=== PATIENT | female | born 1930 | race Caucasian/White ===

== ENCOUNTER 2018-09-01 10:42 | Inpatient (IN) | payer MEDICAID ==
[~2018-09-01] VITALS: Ht 152.4 cm; Wt 59.9 kg
[2018-09-01] MEDS ORDERED: HYDROCODONE/ACETAMINOPHEN 5/325MG TABLET PO ONE (11:30)
[2018-09-01] MEDS ORDERED: MORPHINE SULFATE 4 MG/ML CPJ (NOT FOR IM USE) IV STA (13:43)
[2018-09-01] MEDS ORDERED: ONDANSETRON HCL 4MG/2ML INJ IV STA (13:43)
[2018-09-01] MEDS ORDERED: SODIUM CHLORIDE 0.9% 1,000 ML IV ONE (13:43)
[2018-09-01] MEDS ORDERED: MORPHINE SULFATE 4 MG/ML CPJ (NOT FOR IM USE) IV ONE (13:45)
[2018-09-01] MEDS ORDERED: ETOMIDATE 2MG/ML 10ML VIAL IV ONE (13:45)
[2018-09-01 15:23] LABS: BASOPHILS % 0.7 % (0.0-2.0); EOSINOPHILS % 1.9 % (0.0-5.0); HEMOGLOBIN. 11.2 g/dL (12.0-16.0); LYMPHOCYTES % 16.6 % (20.0-50.0); MEAN CORPUSCULAR HEMOGLOBIN 26.4 pg (28.0-32.0); MEAN CORPUSCULAR VOLUME 85.3 fL (81.0-99.0); MEAN PLATELET VOLUME 9.4 fl (7.4-10.4); MONOCYTES % 4.6 % (2.0-8.0); NEUTROPHILS % 76.2 % (40.0-76.0); PLATELET 195 x1000/uL (130-400); RED BLOOD CELL COUNT 4.23 mill/uL (4.2-5.4); RED CELL DISTRIBUTION WIDTH 16.2 % (11.6-14.6)
[2018-09-01 15:24] LABS: CHLORIDE 108 mEq/L (98-107); INR 1.1; PARTIAL THROMBOPLASTIN TIME 21.7 sec (23.4-31.0); PROTHROMBIN TIME 11.1 sec (9.6-11.0)
[2018-09-01 15:59] LABS: PLATELET ESTIMATE NORMAL
[2018-09-01] MEDS ORDERED: CLONIDINE 0.1MG TABLET PO PRN (17:45)
[2018-09-01] MEDS ORDERED: DOCUSATE SODIUM 100MG CAPSULE PO PRN (17:45)
[2018-09-01] MEDS ORDERED: ONDANSETRON HCL 4MG/2ML INJ IV PRN (17:45)
[2018-09-01] MEDS ORDERED: ACETAMINOPHEN 325MG TABLET PO PRN (17:45)
[2018-09-01] MEDS ORDERED: IPRATROPIUM/ALBUTEROL 0.5-3(2.5)MG/3ML NEB INH PRN (17:45)
[2018-09-01] MEDS ORDERED: AMLODIPINE 5MG TABLET PO ONE (18:00)
[2018-09-01 18:20] LABS: PHOSPHORUS 3.2 mg/dL (2.5-4.9)
[2018-09-02] MEDS: MORPHINE SULFATE 4 MG/ML CPJ (NOT FOR IM USE) IV PRN ×3 (01:18→18:25)
[2018-09-02 05:09] LABS: BASOPHILS % 0.8 % (0.0-2.0); EOSINOPHILS % 1.3 % (0.0-5.0); HEMATOCRIT. 30.7 % (36.0-48.0); HEMOGLOBIN. 9.7 g/dL (12.0-16.0); MEAN CORPUSCULAR HEMOGLOBIN 26.8 pg (28.0-32.0); MEAN CORPUSCULAR VOLUME 84.7 fL (81.0-99.0); MEAN PLATELET VOLUME 7.6 fl (7.4-10.4); MONOCYTES % 7.4 % (2.0-8.0); NEUTROPHILS % 74.5 % (40.0-76.0); PLATELET 177 x1000/uL (130-400); RED BLOOD CELL COUNT 3.62 mill/uL (4.2-5.4); RED CELL DISTRIBUTION WIDTH 16.3 % (11.6-14.6)
[2018-09-02 05:16] LABS: CHLORIDE 107 mEq/L (98-107)
[2018-09-02 09:00] VITALS: BP 146/58
[2018-09-02 09:06] VITALS: BP 146/57
[2018-09-02] MEDS: AMLODIPINE 5MG TABLET PO SCH ×2 (11:28→20:50)
[2018-09-02 12:21] VITALS: BP 155/56
[2018-09-02 15:46] VITALS: BP 114/54
[2018-09-02 20:00] VITALS: BP 127/44
[2018-09-02] MEDS: LORAZEPAM 0.5MG TABLET PO PRN (20:28)
[2018-09-02] MEDS ORDERED: DEXTROSE 50% WATER 50ML SYRINGE IV PRN (21:15)
[2018-09-02] MEDS: BLOOD SUGAR DIAGNOSTIC STRIP TEST SCH (21:15)
[2018-09-02] MEDS: INSULIN LISPRO 100 UNITS/ML SUBCUT SCH (23:55)
[2018-09-03] VITALS: BP 166/59
[2018-09-03] MEDS: MORPHINE SULFATE 4 MG/ML CPJ (NOT FOR IM USE) IV PRN ×2 (00:20→09:24)
[2018-09-03] MEDS: LORAZEPAM 0.5MG TABLET PO PRN ×2 (03:25→09:23)
[2018-09-03 04:00] VITALS: BP 147/51
[2018-09-03 06:00] LABS: BASOPHILS % 0.7 % (0.0-2.0); EOSINOPHILS % 1.3 % (0.0-5.0); HEMATOCRIT. 29.9 % (36.0-48.0); HEMOGLOBIN. 9.6 g/dL (12.0-16.0); LYMPHOCYTES % 17.8 % (20.0-50.0); MEAN CORPUSCULAR HEMOGLOBIN 26.9 pg (28.0-32.0); MEAN CORPUSCULAR VOLUME 83.6 fL (81.0-99.0); MEAN PLATELET VOLUME 8.1 fl (7.4-10.4); MONOCYTES % 8.4 % (2.0-8.0); NEUTROPHILS % 71.8 % (40.0-76.0); PLATELET 181 x1000/uL (130-400); RED BLOOD CELL COUNT 3.57 mill/uL (4.2-5.4); RED CELL DISTRIBUTION WIDTH 16.1 % (11.6-14.6)
[2018-09-03] MEDS: BLOOD SUGAR DIAGNOSTIC STRIP TEST SCH ×4 (06:30→21:00)
[2018-09-03] MEDS: INSULIN LISPRO 100 UNITS/ML SUBCUT SCH ×4 (07:32→21:21)
[2018-09-03 08:00] VITALS: BP 170/53
[2018-09-03] MEDS: AMLODIPINE 5MG TABLET PO SCH ×2 (09:01→20:42)
[2018-09-03 12:00] VITALS: BP 142/57
[2018-09-03 16:00] VITALS: BP 147/46
[2018-09-03] MEDS: HYDROCODONE/ACETAMINOPHEN 5/325MG TABLET PO PRN ×2 (16:03→21:39)
[2018-09-03 20:00] VITALS: BP 117/68
[2018-09-04] VITALS: BP 127/70
[2018-09-04 04:00] VITALS: BP 146/65
[2018-09-04] MEDS: INSULIN LISPRO 100 UNITS/ML SUBCUT SCH ×4 (06:54→22:05)
[2018-09-04] MEDS: BLOOD SUGAR DIAGNOSTIC STRIP TEST SCH ×4 (06:54→21:04)
[2018-09-04 07:32] LABS: BASOPHILS % 0.6 % (0.0-2.0); EOSINOPHILS % 2.1 % (0.0-5.0); HEMATOCRIT. 28.3 % (36.0-48.0); HEMOGLOBIN. 8.9 g/dL (12.0-16.0); LYMPHOCYTES % 13.9 % (20.0-50.0); MEAN CORPUSCULAR HEMOGLOBIN 26.8 pg (28.0-32.0); MEAN PLATELET VOLUME 7.9 fl (7.4-10.4); MONOCYTES % 6.1 % (2.0-8.0); NEUTROPHILS % 77.3 % (40.0-76.0); PLATELET 176 x1000/uL (130-400); RED BLOOD CELL COUNT 3.33 mill/uL (4.2-5.4); RED CELL DISTRIBUTION WIDTH 16.4 % (11.6-14.6)
[2018-09-04 07:45] LABS: CHLORIDE 108 mEq/L (98-107)
[2018-09-04 08:00] VITALS: BP 156/62
[2018-09-04] MEDS: HYDROCODONE/ACETAMINOPHEN 5/325MG TABLET PO PRN ×3 (08:20→22:02)
[2018-09-04] MEDS: AMLODIPINE 5MG TABLET PO SCH ×2 (09:00→20:38)
[2018-09-04 12:00] VITALS: BP 141/50
[2018-09-04 16:00] VITALS: BP 147/43
[2018-09-04 20:00] VITALS: BP 125/50
[2018-09-05] VITALS: BP 150/57
[2018-09-05 04:00] VITALS: BP 151/54
[2018-09-05] MEDS: HYDROCODONE/ACETAMINOPHEN 5/325MG TABLET PO PRN ×3 (04:17→18:25)
[2018-09-05 06:02] LABS: BASOPHILS % 0.9 % (0.0-2.0); EOSINOPHILS % 1.2 % (0.0-5.0); HEMATOCRIT. 28.3 % (36.0-48.0); HEMOGLOBIN. 8.9 g/dL (12.0-16.0); LYMPHOCYTES % 16.1 % (20.0-50.0); MEAN CORPUSCULAR HEMOGLOBIN 26.6 pg (28.0-32.0); MEAN CORPUSCULAR VOLUME 84.4 fL (81.0-99.0); MEAN PLATELET VOLUME 7.9 fl (7.4-10.4); MONOCYTES % 7.7 % (2.0-8.0); NEUTROPHILS % 74.1 % (40.0-76.0); PLATELET 198 x1000/uL (130-400); RED BLOOD CELL COUNT 3.35 mill/uL (4.2-5.4); RED CELL DISTRIBUTION WIDTH 16.7 % (11.6-14.6)
[2018-09-05] MEDS: BLOOD SUGAR DIAGNOSTIC STRIP TEST SCH ×4 (06:56→20:35)
[2018-09-05 07:17] LABS: CHLORIDE 105 mEq/L (98-107)
[2018-09-05] MEDS: INSULIN LISPRO 100 UNITS/ML SUBCUT SCH ×4 (07:50→20:56)
[2018-09-05 08:00] VITALS: BP 150/58
[2018-09-05] MEDS: AMLODIPINE 5MG TABLET PO SCH ×2 (09:43→20:35)
[2018-09-05 12:00] VITALS: BP 159/53
[2018-09-05 16:00] VITALS: BP 149/62
[2018-09-05 20:00] VITALS: BP 137/63
[2018-09-06] VITALS: BP 154/67
[2018-09-06 04:00] VITALS: BP 147/60
[2018-09-06 06:30] LABS: BASOPHILS % 1.2 % (0.0-2.0); EOSINOPHILS % 2.8 % (0.0-5.0); HEMATOCRIT. 29.9 % (36.0-48.0); HEMOGLOBIN. 9.5 g/dL (12.0-16.0); LYMPHOCYTES % 22.3 % (20.0-50.0); MEAN CORPUSCULAR HEMOGLOBIN 26.8 pg (28.0-32.0); MEAN CORPUSCULAR VOLUME 84.5 fL (81.0-99.0); MEAN PLATELET VOLUME 7.7 fl (7.4-10.4); MONOCYTES % 6.4 % (2.0-8.0); NEUTROPHILS % 67.3 % (40.0-76.0); PLATELET 228 x1000/uL (130-400); RED BLOOD CELL COUNT 3.54 mill/uL (4.2-5.4); RED CELL DISTRIBUTION WIDTH 16.6 % (11.6-14.6)
[2018-09-06 06:34] LABS: CHLORIDE 105 mEq/L (98-107)
[2018-09-06] MEDS: BLOOD SUGAR DIAGNOSTIC STRIP TEST SCH ×4 (07:20→21:00)
[2018-09-06] MEDS: INSULIN LISPRO 100 UNITS/ML SUBCUT SCH ×4 (07:50→22:39)
[2018-09-06 08:00] VITALS: BP 177/64
[2018-09-06] MEDS ORDERED: MORPHINE SULFATE 4 MG/ML CPJ (NOT FOR IM USE) IV SCH (08:30)
[2018-09-06] MEDS: AMLODIPINE 5MG TABLET PO SCH ×2 (09:00→21:33)
[2018-09-06] MEDS ORDERED: HYDRALAZINE 5 MG in SODIUM CHLORIDE 0.9% 49.75 ML IV SCH (09:15)
[2018-09-06] MEDS ORDERED: HYDRALAZINE 5 MG in SODIUM CHLORIDE 0.9% 49.5 ML IV PRN (09:15)
[2018-09-06] MEDS ORDERED: BACITRACIN 15GM TUBE TOP ONE (09:21)
[2018-09-06] MEDS ORDERED: VANCOMYCIN HCL 500 MG/VIAL ONE (09:22)
[2018-09-06] MEDS ORDERED: MIDAZOLAM HCL 2 MG/2 ML VIAL ONE (09:53)
[2018-09-06] MEDS ORDERED: BUPIVACAINE HCL/DEXTROSE/PF 0.75% 2ML AMP INJ ONE (09:56)
[2018-09-06] MEDS ORDERED: CEFAZOLIN 1000MG PREMIX 50 ML IV SCH (11:00)
[2018-09-06] MEDS ORDERED: CEFAZOLIN SODIUM 1000MG/VIAL ONE (11:11)
[2018-09-06] MEDS ORDERED: ONDANSETRON HCL 4MG/2ML INJ IV PRN (11:30)
[2018-09-06] MEDS: FENTANYL CITRATE/PF 50MCG/ML 2ML VIAL IV PRN ×2 (11:55→12:05)
[2018-09-06] MEDS: HYDROMORPHONE HCL/PF 2MG/ML CPJ IV PRN ×3 (12:30→12:54)
[2018-09-06] MEDS: HYDROCODONE/ACETAMINOPHEN 5/325MG TABLET PO PRN (14:32)
[2018-09-06 16:00] VITALS: BP 154/59
[2018-09-06] MEDS: LISINOPRIL 10MG TABLET PO SCH ×2 (16:25→21:32)
[2018-09-06] MEDS: MORPHINE SULFATE 4 MG/ML CPJ (NOT FOR IM USE) IV PRN ×2 (17:05→21:34)
[2018-09-06 17:12] LABS: BASOPHILS % 0.8 % (0.0-2.0); EOSINOPHILS % 0.8 % (0.0-5.0); HEMOGLOBIN. 9.5 g/dL (12.0-16.0); LYMPHOCYTES % 9.3 % (20.0-50.0); MEAN CORPUSCULAR HEMOGLOBIN 26.7 pg (28.0-32.0); MEAN CORPUSCULAR VOLUME 84.4 fL (81.0-99.0); MEAN PLATELET VOLUME 7.4 fl (7.4-10.4); MONOCYTES % 5.9 % (2.0-8.0); NEUTROPHILS % 83.2 % (40.0-76.0); PLATELET 222 x1000/uL (130-400); RED BLOOD CELL COUNT 3.55 mill/uL (4.2-5.4); RED CELL DISTRIBUTION WIDTH 16.8 % (11.6-14.6)
[2018-09-06 17:19] LABS: CHLORIDE 103 mEq/L (98-107)
[2018-09-06] MEDS: CEFAZOLIN 1000MG PREMIX 50 ML IV SCH (18:20)
[2018-09-06 20:00] VITALS: BP 147/59
[2018-09-07] VITALS: BP 125/57
[2018-09-07] MEDS: MORPHINE SULFATE 4 MG/ML CPJ (NOT FOR IM USE) IV PRN ×3 (01:28→17:01)
[2018-09-07] MEDS: CEFAZOLIN 1000MG PREMIX 50 ML IV SCH (03:22)
[2018-09-07 04:00] VITALS: BP 133/63
[2018-09-07 06:24] LABS: BASOPHILS % 0.7 % (0.0-2.0); EOSINOPHILS % 1.1 % (0.0-5.0); HEMATOCRIT. 30.1 % (36.0-48.0); HEMOGLOBIN. 9.7 g/dL (12.0-16.0); LYMPHOCYTES % 11.8 % (20.0-50.0); MEAN CORPUSCULAR HEMOGLOBIN 27.1 pg (28.0-32.0); MEAN PLATELET VOLUME 7.6 fl (7.4-10.4); MONOCYTES % 6.4 % (2.0-8.0); PLATELET 232 x1000/uL (130-400); RED BLOOD CELL COUNT 3.59 mill/uL (4.2-5.4); RED CELL DISTRIBUTION WIDTH 16.4 % (11.6-14.6)
[2018-09-07 07:13] LABS: CHLORIDE 102 mEq/L (98-107)
[2018-09-07] MEDS: BLOOD SUGAR DIAGNOSTIC STRIP TEST SCH ×4 (07:20→21:55)
[2018-09-07] MEDS ORDERED: METO-539 PO (07:31)
[2018-09-07] MEDS ORDERED: BENA5TAB6 PO (07:32)
[2018-09-07] MEDS ORDERED: ASPI-1159 PO (07:34)
[2018-09-07] MEDS ORDERED: HYDR-4135 MT (07:34)
[2018-09-07] MEDS ORDERED: ATOR10TA69 MT (07:34)
[2018-09-07] MEDS ORDERED: WARF3TAB58 MT (07:34)
[2018-09-07] MEDS ORDERED: PANT40TA4 PO (07:35)
[2018-09-07 08:00] VITALS: BP 146/56
[2018-09-07] MEDS: LISINOPRIL 10MG TABLET PO SCH ×2 (09:28→21:07)
[2018-09-07] MEDS: AMLODIPINE 5MG TABLET PO SCH ×2 (09:28→21:07)
[2018-09-07] MEDS: INSULIN LISPRO 100 UNITS/ML SUBCUT SCH ×4 (09:35→22:28)
[2018-09-07 11:23] VITALS: BP 159/59
[2018-09-07] MEDS: HYDROCODONE/ACETAMINOPHEN 5/325MG TABLET PO PRN ×2 (11:47→21:09)
[2018-09-07 16:00] VITALS: BP 161/62
[2018-09-07 20:24] VITALS: BP 142/59
[2018-09-07] MEDS ORDERED: MAGNESIUM 4 G PREMIX 100 ML IV NR (21:00)
[2018-09-07] MEDS: ENOXAPARIN 30MG/0.3ML SYR SUBCUT SCH (21:11)
[2018-09-08] VITALS (7 sets, daily range): BP systolic 113–154; BP diastolic 48–69
[2018-09-08] MEDS: MORPHINE SULFATE 4 MG/ML CPJ (NOT FOR IM USE) IV PRN ×4 (00:21→20:18)
[2018-09-08 06:17] LABS: BASOPHILS % 1.5 % (0.0-2.0); EOSINOPHILS % 2.5 % (0.0-5.0); HEMATOCRIT. 32.6 % (36.0-48.0); HEMOGLOBIN. 10.4 g/dL (12.0-16.0); LYMPHOCYTES % 22.5 % (20.0-50.0); MEAN CORPUSCULAR HEMOGLOBIN 27.3 pg (28.0-32.0); MEAN CORPUSCULAR VOLUME 85.6 fL (81.0-99.0); MEAN PLATELET VOLUME 7.7 fl (7.4-10.4); NEUTROPHILS % 65.5 % (40.0-76.0); PLATELET 216 x1000/uL (130-400); RED BLOOD CELL COUNT 3.81 mill/uL (4.2-5.4)
[2018-09-08] MEDS: INSULIN LISPRO 100 UNITS/ML SUBCUT SCH ×4 (06:36→22:00)
[2018-09-08] MEDS: BLOOD SUGAR DIAGNOSTIC STRIP TEST SCH ×4 (06:36→22:00)
[2018-09-08 06:47] LABS: CHLORIDE 105 mEq/L (98-107)
[2018-09-08 07:02] LABS: TOTAL IRON BINDING CAPACITY 510 ug/dL (250-450)
[2018-09-08 07:19] LABS: VITAMIN B12 SERUM >2000 pg/mL pg/mL (211-911)
[2018-09-08 07:20] LABS: FERRITIN 51 ng/mL (10-291)
[2018-09-08] MEDS: AMLODIPINE 5MG TABLET PO SCH ×2 (08:02→20:35)
[2018-09-08] MEDS: LISINOPRIL 10MG TABLET PO SCH ×2 (08:02→20:35)
[2018-09-08] MEDS: POLYETHYLENE GLYCOL 3350 (17GM) 1 DOSE PACK PO SCH (08:06)
[2018-09-08] MEDS: HYDROCODONE/APAP 7.5/325MG 1 TAB TABLET PO PRN (10:22)
[2018-09-08] MEDS ORDERED: LISI10TA5 PO (13:37)
[2018-09-08] MEDS ORDERED: FERR325T6 MT (13:37)
[2018-09-08] MEDS ORDERED: HYDR-4005 PO (13:37)
[2018-09-08] MEDS ORDERED: DOCU-138 MT (13:37)
[2018-09-08] MEDS ORDERED: AMLO5TAB88 PO (13:37)
[2018-09-08] MEDS: FERROUS SULFATE 325MG TABLET PO SCH (17:13)
[2018-09-08] MEDS: ENOXAPARIN 30MG/0.3ML SYR SUBCUT SCH (17:13)
[2018-09-09] MEDS: HYDROCODONE/APAP 7.5/325MG 1 TAB TABLET PO PRN ×3 (00:47→17:25)
[2018-09-09 03:57] VITALS: BP 121/54
[2018-09-09] MEDS: BLOOD SUGAR DIAGNOSTIC STRIP TEST SCH ×4 (06:44→20:05)
[2018-09-09] MEDS: INSULIN LISPRO 100 UNITS/ML SUBCUT SCH ×4 (06:44→21:08)
[2018-09-09 07:32] VITALS: BP 140/57
[2018-09-09] MEDS: POLYETHYLENE GLYCOL 3350 (17GM) 1 DOSE PACK PO SCH (08:28)
[2018-09-09] MEDS: AMLODIPINE 5MG TABLET PO SCH ×2 (08:29→20:04)
[2018-09-09] MEDS: FERROUS SULFATE 325MG TABLET PO SCH ×3 (08:29→17:24)
[2018-09-09] MEDS: LISINOPRIL 10MG TABLET PO SCH ×2 (08:29→20:05)
[2018-09-09 12:00] VITALS: BP 140/87
[2018-09-09] MEDS: RISPERIDONE 0.5MG TABLET PO SCH (12:35)
[2018-09-09 16:00] VITALS: BP 136/52
[2018-09-09] MEDS: ENOXAPARIN 40MG/0.4ML SYR SUBCUT SCH (17:25)
[2018-09-09 20:00] VITALS: BP 104/62
[2018-09-09] MEDS: ALPRAZOLAM 0.5 MG TABLET PO PRN (21:05)
[2018-09-10] VITALS: BP 148/59
[2018-09-10] MEDS: BLOOD SUGAR DIAGNOSTIC STRIP TEST SCH ×4 (06:35→20:37)
[2018-09-10] MEDS: INSULIN LISPRO 100 UNITS/ML SUBCUT SCH ×4 (07:50→20:41)
[2018-09-10 08:00] VITALS: BP 144/60
[2018-09-10] MEDS: LISINOPRIL 10MG TABLET PO SCH ×2 (09:05→20:18)
[2018-09-10] MEDS: RISPERIDONE 0.5MG TABLET PO SCH (09:05)
[2018-09-10] MEDS: POLYETHYLENE GLYCOL 3350 (17GM) 1 DOSE PACK PO SCH (09:05)
[2018-09-10] MEDS: AMLODIPINE 5MG TABLET PO SCH ×2 (09:05→20:19)
[2018-09-10] MEDS: FERROUS SULFATE 325MG TABLET PO SCH ×3 (09:05→18:12)
[2018-09-10 12:00] VITALS: BP 139/58
[2018-09-10 16:00] VITALS: BP 136/53
[2018-09-10] MEDS: ENOXAPARIN 40MG/0.4ML SYR SUBCUT SCH (18:12)
[2018-09-10 20:00] VITALS: BP 144/57
[2018-09-10] MEDS: ALPRAZOLAM 0.5 MG TABLET PO PRN (21:46)
[2018-09-11] VITALS: BP 144/74
[2018-09-11 04:00] VITALS: BP 141/67
[2018-09-11] MEDS: BLOOD SUGAR DIAGNOSTIC STRIP TEST SCH ×2 (06:20→11:54)
[2018-09-11] MEDS: HYDROCODONE/APAP 7.5/325MG 1 TAB TABLET PO PRN (06:32)
[2018-09-11] MEDS: INSULIN LISPRO 100 UNITS/ML SUBCUT SCH ×2 (07:50→11:54)
[2018-09-11 08:00] VITALS: BP 96/54
[2018-09-11] MEDS: AMLODIPINE 5MG TABLET PO SCH (08:52)
[2018-09-11] MEDS: LISINOPRIL 10MG TABLET PO SCH (08:52)
[2018-09-11] MEDS: FERROUS SULFATE 325MG TABLET PO SCH ×2 (08:53→12:50)
[2018-09-11] MEDS: RISPERIDONE 0.5MG TABLET PO SCH (08:53)
[2018-09-11] MEDS: POLYETHYLENE GLYCOL 3350 (17GM) 1 DOSE PACK PO SCH (08:53)
[2018-09-11 12:00] VITALS: BP 112/53
[2018-09-11 14:38] VITALS: BP 112/53
[2018-09-11 16:00] VITALS: BP 123/55
== END 2018-09-11 16:54 | DRG 313 ==
LOC: ER 10:42 → 6EST 16:42 → EDBEDREQ 16:44 → EDBEDREQTM 16:44 → ENRESERV 09-02 07:13
PROVIDERS: ADMIT Internal Medicine; ATTEND Internal Medicine
PROC: 0SSFXZZ Reposition Right Ankle Joint, External Approach (ICD-10-PCS; 2018-09-01)
PROC: 4B02XSZ Measurement of Cardiac Pacemaker, External Approach (ICD-10-PCS; 2018-09-04)
PROC: 0QSJ34Z Reposition Right Fibula with Internal Fixation Device, Percutaneous Approach (ICD-10-PCS; principal; 2018-09-06)
PROC: 0QSG34Z Reposition Right Tibia with Internal Fixation Device, Percutaneous Approach (ICD-10-PCS; 2018-09-06)
DX: S82.841A Displaced bimalleolar fracture of right lower leg, initial encounter for closed fracture (principal); E11.65 Type 2 diabetes mellitus with hyperglycemia; I27.21 Secondary pulmonary arterial hypertension; E83.42 Hypomagnesemia; I08.1 Rheumatic disorders of both mitral and tricuspid valves; D72.829 Elevated white blood cell count, unspecified; D50.9 Iron deficiency anemia, unspecified; E03.9 Hypothyroidism, unspecified; M85.80 Other specified disorders of bone density and structure, unspecified site; I10 Essential (primary) hypertension; F03.90 Unspecified dementia, unspecified severity, without behavioral disturbance, psychotic disturbance, mood disturbance, and anxiety; W01.0XXA Fall on same level from slipping, tripping and stumbling without subsequent striking against object, initial encounter; X50.1XXA Overexertion from prolonged static or awkward postures, initial encounter; Y92.009 Unspecified place in unspecified non-institutional (private) residence as the place of occurrence of the external cause; Y99.8 Other external cause status; Z79.01 Long term (current) use of anticoagulants; Z79.84 Long term (current) use of oral hypoglycemic drugs; Z95.0 Presence of cardiac pacemaker
CPT/HCPCS: 36415; 71045; 73560; 73590; 73600; 73610; 76000; 80048; 80061; 82607; 82728; 82746; 82962; 83036; 83540; 83550; 83735; 84100; 84443; 86850; 86900; 93005; 93306; 93970; 96374; 96375; 97110; 97116; 97162; 97530; 99285; C1713; C1893; J0360; J0690; J1170; J1650; J1815; J2250; J2270; J2405; J3010; J3370; J3475; J3490; J7030; Q4051